=== PATIENT | female | born 1970 | race Caucasian/White ===

== ENCOUNTER 2019-05-02 23:50 | Emergency (ER) | payer BC ==
[2019-05-03] MEDS ORDERED: Sodium Chloride 0.9% 2.5 ML Syringe FLUSH PRN (00:07)
[2019-05-03] MEDS ORDERED: Sodium Chloride 0.9% 1,000 ML IV ONE (00:07)
[2019-05-03] MEDS ORDERED: Sodium Chloride 0.9% 10 ML Syringe FLUSH PRN (00:07)
--- NOTE | 2019-05-03 00:13 | EDM.PDOC ---
ED HPI GENERAL MEDICAL PROBLEM - General Chief Complaint: Chest Pain Stated Complaint: PT HAS CHEST PAINS Time Seen by Provider: 05/02/19 23:56 - History of Present Illness INITIAL COMMENTS - FREE TEXT/NARRATIVE: HISTORY AND PHYSICAL: History of present illness: The patient is a 48-year-old female who follows with Dr. Baker and has had a one-year history of issues of chronic migraines, problems with her breast implants which have been since removed and episodic chest pain midsternal all over the last one year. 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 She says that she is here tonight because she has this episodic midsternal chest pain with an internal shakiness that has happened in the past and it has worsened over the last 8 days. She says that in the past when this has occurred Dr. Baker had given her a beta batsheva which she took for 2 weeks and it improved the symptoms so she stopped taking it although he did not recommend that. She says that when the symptoms started again she restarted the beta batsheva 2-3 days ago. She says that is not been helping. She has been eating and drinking normally and she has not had any abdominal pain vomiting fevers chills coughing or shortness of breath. She describes the pain as a deep pain in the midportion of her sternum that does not radiate and it makes her feel internally shaky and tachycardic. She said that she has been dealing with it at home and has not seen Dr. Baker because she has this appointment at [place] coming up and thought she could wait. This evening she comes to the ED because she woke up from sleep feeling this discomfort and feeling like her heart was racing and her that her blood pressure was elevated 160s over 80s. He said that when she woke up her heart was racing she felt internally shaky and she had tingling all over her extremities. Currently she says she still feels internally like her heart is racing and she feels internally shaky even though she knows that her heart rate is normal on the monitor. She tells me that there is nothing new or different about the character or location of the symptoms but her waking from sleep with the racing heart and the worsening of the symptoms made her scared so she came here. She has a history of a hysterectomy. She has no leg pain swelling or other extremity issues no rashes and no fevers or chills. He says that she has been dealing with these stressful issues over the last one year Review of systems: As per history of present illness and below otherwise all systems reviewed and negative. Past medical history: As per history of present illness and as reviewed below otherwise noncontributory. Surgical history: As per history of present illness and as reviewed below otherwise noncontributory. Social history: No reported history of drug or alcohol abuse. Family history: As per history of present illness and as reviewed below otherwise noncontributory. Physical exam: General: Well-developed well-nourished female who is nontoxic and vital signs were noted by me. She is noted to be somewhat anxious on my evaluation but can be redirected. HEENT: Atraumatic, normocephalic, negative for conjunctival pallor or scleral icterus, mucous membranes moist, throat clear, neck supple, nontender, trachea midline. Lungs: Clear to auscultation, breath sounds equal bilaterally, chest nontender. Heart: S1S2, regular rate and rhythm no overt murmur Abdomen: Soft, nondistended, nontender. NABS Pelvis: Deferred Genitourinary: Deferred. Rectal: Deferred. Extremities: Atraumatic, negative for cords or calf pain. Neurovascular unremarkable. No pedal edema or leg asymmetry Neuro: Awake, alert, oriented. Cranial nerves II through XII unremarkable. Cerebellum unremarkable. Motor and sensory unremarkable throughout. Exam nonfocal. Diagnostics: EKG chest x-ray CBC CMP magnesium level troponin TSH d-dimer Therapeutics: IV fluids, patient was offered Ativan and declines Toradol I discussed with the patient and her significant other bedside that we will be limited in the ED to evaluate these symptoms and as they are not necessarily different from prior episodes we could check basic labs x-ray and EKG and then reevaluate. She is not sure if she has very hydrated but she has tried to drink fluids but is agreeable to have the IV fluids but wants no other medications at this time. Patient says she still feels like this internal shakiness is going on and I've offered her some Toradol which she is agreeable to try. She is aware of her testing results and that she is mildly dehydrated and that the hydration will help. I've again reoffered her some Ativan she would like to see how the Toradol works before moving on. Patient's heart rate is now 68. Earlier the patient asked if she could get another dose of beta batsheva which I told her that I did not feel comfortable giving her an light of her heart rate and have reiterated this on my conversation with her on my reevaluation The patient says that she still has her symptoms but as we are talking together she says that she is feeling a bit more relaxed. She says she does not want the lorazepam and she would like to disco home. She is going to contact Dr. Baker tomorrow and she is aware she can return at any time to the ED Impression: Atypical chest pain/subjective palpitations acute on chronic Definitive disposition and diagnosis as appropriate pending reevaluation and review of above. chest Pain Score (Numeric/FACES): 6 - Related Data Allergies Allergy/AdvReac Type Severity Reaction Status Date / Time promethazine HCl Allergy makes my Verified 05/02/19 23:56 [From Phenergan] skin crawl Home Meds: Home Meds Ascorbate Calcium [Vitamin C] 500 mg PO DAILY 03/08/15 [History] Magnesium 0 mg PO BID 03/08/15 [History] Betablocker 05/03/19 [History] Past Medical History - Past Health History Medical/Surgical History: Denies Medical/Surgical History HEENT History: Reports: None Cardiovascular History: Reports: None Respiratory History: Reports: None Gastrointestinal History: Reports: Other (See Below) Other Gastrointestinal History: increasing epigastric pain Genitourinary History: Reports: None Musculoskeletal History: Reports: None Neurological History: Reports: Other (See Below) Other Neuro History: Sinus Thrombosis Psychiatric History: Reports: Anxiety Endocrine/Metabolic History: Reports: None Hematologic History: Reports: None Immunologic History: Reports: None Oncologic (Cancer) History: Reports: None Dermatologic History: Reports: None - Infectious Disease History Infectious Disease History: Reports: None - Past Surgical History GI Surgical History: Reports: Cholecystectomy Female Surgical History: Reports: Breast Reconstruction, Hysterectomy, Other (See Below) Other Female Surgeries/Procedures: breasts implants taken out 03/10/19 Neurological Surgical History: Reports: None Musculoskeletal Surgical History: Reports: Other (See Below) Other Musculoskeletal Surgeries/Procedures:: pt states "my docor says I probably have benoit, I have an appnt in [place]" for confirmation of benoit Social & Family History - Family History Family Medical History: Noncontributory - Tobacco Use Smoking Status *Q: Never Smoker Second Hand Smoke Exposure: No - Caffeine Use Caffeine Use: Reports: None - Recreational Drug Use Recreational Drug Use: No ED ROS GENERAL - Review of Systems Review Of Systems: ROS reveals no pertinent complaints other than HPI. ED EXAM, GENERAL - Physical Exam Exam: See Below (See dictation) Course - Vital Signs Last Recorded V/S: Last Vital Signs Temp 36.5 C 05/02/19 23:51 Pulse 68 05/03/19 01:08 Resp 16 05/03/19 01:08 BP 123/79 05/03/19 01:08 Pulse Ox 99 05/03/19 01:08 - Orders/Labs/Meds Orders: Active Orders 24 hr Category Date Time Status EKG Documentation Completion [RC] STAT Care 05/02/19 23:51 Active CULTURE URINE [RM] Stat Lab 05/03/19 00:10 Received Sodium Chloride 0.9% [Saline Flush] Med 05/03/19 00:07 Active 10 ml FLUSH ASDIRECTED PRN Sodium Chloride 0.9% [Saline Flush] Med 05/03/19 00:07 Active 2.5 ml FLUSH ASDIRECTED PRN Saline Lock Insert [OM.PC] Stat Oth 05/03/19 00:07 Ordered Medication Orders Sodium Chloride (Saline Flush) 10 ml FLUSH ASDIRECTED PRN PRN Reason: Keep Vein Open Last Admin: 05/03/19 01:09 Dose: 10 ml Sodium Chloride (Saline Flush) 2.5 ml FLUSH ASDIRECTED PRN PRN Reason: Keep Vein Open Last Admin: 05/03/19 01:09 Dose: 2.5 ml Labs: Laboratory Tests 05/02/19 05/02/19 05/02/19 Range/Units 23:45 23:45 23:45 WBC 7.96 (4.0-11.0) K/uL RBC 5.19 (4.30-5.90) M/uL Hgb 14.9 (12.0-16.0) g/dL Hct 42.9 (36.0-46.0) % MCV 82.7 (80.0-98.0) fL MCH 28.7 (27.0-32.0) pg MCHC 34.7 (31.0-37.0) g/dL RDW Std Deviation 37.7 (28.0-62.0) fl RDW Coeff of [place] 13 (11.0-15.0) % Plt Count 225 (150-400) K/uL MPV 9.80 (7.40-12.00) fL Neut % (Auto) 43.5 L (48.0-80.0) % Lymph % (Auto) 42.2 H (16.0-40.0) % [place] % (Auto) 6.4 (0.0-15.0) % Eos % (Auto) 7.0 (0.0-7.0) % Baso % (Auto) 0.9 (0.0-1.5) % Neut # (Auto) 3.5 (1.4-5.7) K/uL Lymph # (Auto) 3.4 H (0.6-2.4) K/uL [place] # (Auto) 0.5 (0.0-0.8) K/uL Eos # (Auto) 0.6 (0.0-0.7) K/uL Baso # (Auto) 0.1 (0.0-0.1) K/uL D-Dimer, Quantitative 0.41 (0.0-0.50) mg/L FEU Sodium 143 (136-145) mmol/L Potassium 4.1 (3.5-5.1) mmol/L Chloride 106 (98-107) mmol/L Carbon Dioxide 23.0 (21.0-32.0) mmol/L BUN 25 H (7.0-18.0) mg/dL Creatinine 0.9 (0.6-1.0) mg/dL Est Cr Clr Drug Dosing 71.56 mL/min Estimated GFR (MDRD) > 60.0 ml/min Glucose 92 (74-106) mg/dL Calcium 9.6 (8.5-10.1) mg/dL Magnesium 2.3 (1.8-2.4) mg/dL Total Bilirubin 0.4 (0.2-1.0) mg/dL AST 15 (15-37) IU/L ALT 16 (14-63) IU/L Alkaline Phosphatase 66 (46-116) U/L Troponin I < 0.050 (0.000-0.056) ng/mL Total Protein 7.4 (6.4-8.2) g/dL Albumin 3.9 (3.4-5.0) g/dL Globulin 3.5 (2.6-4.0) g/dL Albumin/Globulin Ratio 1.1 (0.9-1.6) TSH 3rd Generation 2.95 (0.36-3.74) uIU/mL Urine Color Urine Appearance Urine pH (5.0-8.0) Ur Specific [place] (1.001-1.035) Urine Protein (NEGATIVE) mg/dL Urine Glucose (UA) (NEGATIVE) mg/dL Urine Ketones (NEGATIVE) mg/dL Urine Occult Blood (NEGATIVE) Urine Nitrite (NEGATIVE) Urine Bilirubin (NEGATIVE) Urine Urobilinogen (<2.0) EU/dL Ur Leukocyte Esterase (NEGATIVE) Urine RBC (0-2/HPF) Urine WBC (0-5/HPF) Ur Epithelial Cells (NONE-FEW) Urine Bacteria (NEGATIVE) 05/03/19 Range/Units 00:10 WBC (4.0-11.0) K/uL RBC (4.30-5.90) M/uL Hgb (12.0-16.0) g/dL Hct (36.0-46.0) % MCV (80.0-98.0) fL MCH (27.0-32.0) pg MCHC (31.0-37.0) g/dL RDW Std Deviation (28.0-62.0) fl RDW Coeff of [place] (11.0-15.0) % Plt Count (150-400) K/uL MPV (7.40-12.00) fL Neut % (Auto) (48.0-80.0) % Lymph % (Auto) (16.0-40.0) % [place] % (Auto) (0.0-15.0) % Eos % (Auto) (0.0-7.0) % Baso % (Auto) (0.0-1.5) % Neut # (Auto) (1.4-5.7) K/uL Lymph # (Auto) (0.6-2.4) K/uL [place] # (Auto) (0.0-0.8) K/uL Eos # (Auto) (0.0-0.7) K/uL Baso # (Auto) (0.0-0.1) K/uL D-Dimer, Quantitative (0.0-0.50) mg/L FEU Sodium (136-145) mmol/L Potassium (3.5-5.1) mmol/L Chloride (98-107) mmol/L Carbon Dioxide (21.0-32.0) mmol/L BUN (7.0-18.0) mg/dL Creatinine (0.6-1.0) mg/dL Est Cr Clr Drug Dosing mL/min Estimated GFR (MDRD) ml/min Glucose (74-106) mg/dL Calcium (8.5-10.1) mg/dL Magnesium (1.8-2.4) mg/dL Total Bilirubin (0.2-1.0) mg/dL AST (15-37) IU/L ALT (14-63) IU/L Alkaline Phosphatase (46-116) U/L Troponin I (0.000-0.056) ng/mL Total Protein (6.4-8.2) g/dL Albumin (3.4-5.0) g/dL Globulin (2.6-4.0) g/dL Albumin/Globulin Ratio (0.9-1.6) TSH 3rd Generation (0.36-3.74) uIU/mL Urine Color YELLOW Urine Appearance CLEAR Urine pH 6.0 (5.0-8.0) Ur Specific [place] 1.020 (1.001-1.035) Urine Protein NEGATIVE (NEGATIVE) mg/dL Urine Glucose (UA) NEGATIVE (NEGATIVE) mg/dL Urine Ketones 15 H (NEGATIVE) mg/dL Urine Occult Blood TRACE-INTACT H (NEGATIVE) Urine Nitrite NEGATIVE (NEGATIVE) Urine Bilirubin NEGATIVE (NEGATIVE) Urine Urobilinogen 0.2 (<2.0) EU/dL Ur Leukocyte Esterase TRACE H (NEGATIVE) Urine RBC 1-2 (0-2/HPF) Urine WBC 1-2 (0-5/HPF) Ur Epithelial Cells RARE (NONE-FEW) Urine Bacteria RARE (NEGATIVE) Meds: Medications Generic Name Dose Route Start Last Admin Trade Name Freq PRN Reason Stop Dose Admin Sodium Chloride 10 ml 05/03/19 00:07 05/03/19 01:09 Saline Flush FLUSH 10 ml ASDIRECTED PRN Administration Keep Vein Open Sodium Chloride 2.5 ml 05/03/19 00:07 05/03/19 01:09 Saline Flush FLUSH 2.5 ml ASDIRECTED PRN Administration Keep Vein Open Discontinued Medications Generic Name Dose Route Start Last Admin Trade Name Freq PRN Reason Stop Dose Admin Sodium Chloride 1,000 mls @ 999 mls/hr 05/03/19 00:07 05/03/19 00:16 Normal Saline IV 05/03/19 01:07 999 mls/hr STAT ONE Administration Ketorolac Tromethamine 30 mg 05/03/19 01:06 05/03/19 01:09 Toradol IVPUSH 05/03/19 01:07 30 mg ONETIME ONE Administration Departure - Departure Time of Disposition: 02:12 Disposition: Home, Self-Care 01 Condition: Good Clinical Impression: Shakiness, Atypical chest pain - Discharge Information Referrals: PCP,None [Primary Care Provider] - Forms: ED Department Discharge Additional Instructions: The following information is given to patients seen in the emergency department who are being discharged to home. This information is to outline your options for follow-up care. We provide all patients seen in our emergency department with a follow-up referral. The need for follow-up, as well as the timing and circumstances, are variable depending upon the specifics of your emergency department visit. If you don't have a primary care physician on staff, we will provide you with a referral. We always advise you to contact your personal physician following an emergency department visit to inform them of the circumstance of the visit and for follow-up with them and/or the need for any referrals to a consulting specialist. The emergency department will also refer you to a specialist when appropriate. This referral assures that you have the opportunity for followup care with a specialist. All of these measure are taken in an effort to provide you with optimal care, which includes your followup. Under all circumstances we always encourage you to contact your private physician who remains a resource for coordinating your care. When calling for followup care, please make the office aware that this follow-up is from your recent emergency room visit. If for any reason you are refused follow-up, please contact the [facility] emergency department at and ask to speak to the emergency department charge nurse. [address] [place] [address] Baker in the clinic to discuss with him tonight the events and workup and further care plan until you're seen at the [facility]. Keep all appointments discussed and push hydration. Return to ER as needed and as discussed. - My Orders Last 24 Hours: My Active Orders 05/02/19 23:51 EKG Documentation Completion [RC] STAT 05/03/19 00:07 Sodium Chloride 0.9% [Saline Flush] 10 ml FLUSH ASDIRECTED PRN Sodium Chloride 0.9% [Saline Flush] 2.5 ml FLUSH ASDIRECTED PRN Saline Lock Insert [OM.PC] Stat 05/03/19 00:10 CULTURE URINE [RM] Stat - Assessment/Plan Last 24 Hours: My Active Orders 05/02/19 23:51 EKG Documentation Completion [RC] STAT 05/03/19 00:07 Sodium Chloride 0.9% [Saline Flush] 10 ml FLUSH ASDIRECTED PRN Sodium Chloride 0.9% [Saline Flush] 2.5 ml FLUSH ASDIRECTED PRN Saline Lock Insert [OM.PC] Stat 05/03/19 00:10 CULTURE URINE [RM] Stat
[2019-05-03 00:45] LABS: BLOOD UREA NITROGEN,BUN 25 mg/dL (7.0-18.0); CHLORIDE,CL 106 mmol/L (98-107); GLUCOSE RANDOM 92 mg/dL (74-106); POTASSIUM,K 4.1 mmol/L (3.5-5.1); SODIUM,NA 143 mmol/L (136-145)
--- NOTE | 2019-05-03 00:59 | CR ---
INDICATION: Chest pain TECHNIQUE: Chest radiograph 2 views COMPARISON: None FINDINGS: Mediastinum: The mediastinum is normal in appearance. The heart silhouette is normal in size and morphology. Lung: Both lungs are unremarkable in appearance. No sign of pleural effusion seen. No pneumothorax is identified. IMPRESSION: 1. No acute cardiopulmonary disease is seen. Dictated by: Chance Bridges MD @ 05/03/2019 00:57:17 (Electronically Signed)
[2019-05-03] MEDS ORDERED: Ketorolac 30 MG/ML SDV IVPUSH ONE (01:06)
[2019-05-03 01:10] VITALS: PULSE 68
[2019-05-03 02:40] VITALS: BP 119/89
== END 2019-05-03 02:39 | disposition home or self-care (01) ==
LOC: MW.ED 23:50
DX: R07.89 Other chest pain (principal); R25.9 Unspecified abnormal involuntary movements; R00.2 Palpitations; Z88.8 Allergy status to other drugs, medicaments and biological substances; Z90.49 Acquired absence of other specified parts of digestive tract; Z90.710 Acquired absence of both cervix and uterus
CPT/HCPCS: 36415; 71046; 80053; 81001; 83735; 84443; 84484; 85025; 85379; 87086; 93005; 96361; 96374; 99285; J1885; J7040; 99284

== ENCOUNTER 2020-02-26 09:22 | Emergency (ER) | payer BC ==
[2020-02-26] MEDS ORDERED: Sodium Chloride 0.9% 10 ML Syringe FLUSH PRN (09:44)
[2020-02-26] MEDS ORDERED: Sodium Chloride 0.9% 2.5 ML Syringe FLUSH PRN (09:44)
[2020-02-26] MEDS ORDERED: Sodium Chloride 0.9% 10 ML SDV IV PRN (09:44)
[2020-02-26] MEDS ORDERED: Acetaminophen 500 MG Tab PO ONE (09:45)
[2020-02-26] MEDS ORDERED: Ibuprofen 400 MG Tab PO ONE (09:45)
[2020-02-26] MEDS ORDERED: Lidocaine 5% 700 MG Patch TOP ONE (09:45)
--- NOTE | 2020-02-26 09:51 | EDM.PDOC ---
ED HPI GENERAL MEDICAL PROBLEM - General Chief Complaint: Upper Extremity Injury/Pain Stated Complaint: PAIN SHOULDER RT SIDE Time Seen by Provider: 02/26/20 09:25 Source of Information: Reports: Patient History Limitations: Reports: No Limitations - History of Present Illness INITIAL COMMENTS - FREE TEXT/NARRATIVE: 49-year-old female with a past medical history of Sjogren's syndrome, POTS presenting with chest pain. Patient reports a 3-day history of right-sided chest pain radiating to the right scapula. She states that she did crash her riding lawnmower into a tree 5 days ago, but the pain did not start until about 48 hours later, and started while she was at rest. She describes sharp, right- sided chest pain that is constant and worse with breathing. Rated as 10 out of 10. Does not complain of shortness of breath but does state that it is painful to breathe. No self treatment prior to arrival. She denies any history of venous thromboembolism, leg swelling, hemoptysis, malignancy, recent surgery or immobilization or long travel, or hormonal medication use. No prior history of coronary artery disease. right shoulder Pain Score (Numeric/FACES): 10 - Related Data Allergies Allergy/AdvReac Type Severity Reaction Status Date / Time gabapentin Allergy Hallucinati Verified 02/26/20 09:44 ons promethazine HCl Allergy makes my Verified 05/02/19 23:56 [From Phenergan] skin crawl Home Meds: Home Meds Ascorbate Calcium [Vitamin C] 500 mg PO DAILY 03/08/15 [History] Magnesium 0 mg PO BID 03/08/15 [History] Betablocker 05/03/19 [History] oxyCODONE 5 - 10 mg PO Q6H PRN #12 tab 02/26/20 [Rx] Past Medical History - Past Health History Medical/Surgical History: Denies Medical/Surgical History HEENT History: Reports: None Cardiovascular History: Reports: None Other Cardiovascular History: POTS Respiratory History: Reports: None Gastrointestinal History: Reports: GERD Other Gastrointestinal History: increasing epigastric pain Genitourinary History: Reports: None Musculoskeletal History: Reports: None, Connective Tissue Disease Other Musculoskeletal History: Sjogren's syndrome Neurological History: Reports: Other (See Below) Other Neuro History: Sinus Thrombosis Psychiatric History: Reports: Anxiety Endocrine/Metabolic History: Reports: None Hematologic History: Reports: None Immunologic History: Reports: None Oncologic (Cancer) History: Reports: None Dermatologic History: Reports: None - Infectious Disease History Infectious Disease History: Reports: Chicken Pox - Past Surgical History GI Surgical History: Reports: Cholecystectomy Female Surgical History: Reports: Breast Reconstruction, Hysterectomy, Other (See Below) Other Female Surgeries/Procedures: breasts implants taken out 03/10/19 Neurological Surgical History: Reports: None Musculoskeletal Surgical History: Reports: Other (See Below) Social & Family History - Family History Family Medical History: Noncontributory - Tobacco Use Smoking Status *Q: Never Smoker - Caffeine Use Caffeine Use: Reports: None - Recreational Drug Use Recreational Drug Use: No Review of Systems - Review of Systems Review Of Systems: See Below Constitutional: Denies: Chills, Fever Eyes: Reports: No Symptoms Ears: Reports: No Symptoms Nose: Reports: No Symptoms Mouth/Throat: Reports: No Symptoms Respiratory: Reports: Pleuritic Chest Pain. Denies: Shortness of Breath, Cough Cardiovascular: Reports: Chest Pain. Denies: Edema, Syncope GI/Abdominal: Denies: Abdominal Pain, Nausea, Vomiting Genitourinary: Reports: No Symptoms Musculoskeletal: Reports: No Symptoms Skin: Reports: No Symptoms Neurological: Reports: No Symptoms Psychiatric: Reports: No Symptoms ED EXAM, GENERAL - Physical Exam Exam: See Below Free Text/Narrative:: Vital signs reviewed. Nursing notes reviewed. Constitutional: Awake, alert, non-distressed, appears uncomfortable Head: Normocephalic, atraumatic. Eyes: EOMI, conjunctiva normal, no discharge, no scleral icterus. Ears, Nose, Throat: External ears and nose normal, moist oral mucosa. Cardiovascular: Tachycardic, 2+ radial pulses bilaterally, capillary refill less than 2 seconds. No lower extremity edema. No M/R/G Chest: Marked tenderness to palpation of the right anterior chest Back: Tenderness to the right scapula Pulmonary: normal work of breathing, no accessory muscle use. CTA BL Abdomen/GI: Soft, nontender, nondistended, no guarding or rigidity, no masses. Musculoskeletal: No deformities. Integumentary: Appropriate color for ethnicity, warm, slightly moist, no pallor or jaundice, no rash. No evidence of shingles. Neurologic: Alert, answering questions appropriately, normal speech, no facial droop, moving all extremities well. 5/5 strength to the bilateral upper extremities, strong receiving operator bilaterally, able to make okay sign, thumbs up, and abduct all fingers of the right hands. Psychiatric: Appropriate mood and affect, normal thought process. EKG INTERPRETATION EKG Interpretation Comments: 12-Lead ECG Interpretation Acquired: 9:46 AM Rhythm: Sinus tachycardia Rate: 101 bpm [place]: Normal Intervals: Normal Ectopy: None Ischemic Changes: Q waves in lead III, not appreciated in leads II or aVF. RV Strain: No obvious RV strain pattern. ST Segments/T-Waves: No notable changes Interpretation: Q waves in lead III, nonspecific change. Sinus tachycardia. Abnormal EKG. Course - Vital Signs Text/Narrative:: 49-year-old female with severe right-sided chest pain rating to the back, pleuritic in nature. Patient mildly tachycardic, but [hemodynamically stable, afebrile], well- appearing, looks nontoxic. Differential diagnosis includes but is not limited to: Acute coronary syndrome, pulmonary embolism, pneumothorax, thoracic aortic dissection, rib fracture, pulmonary contusion, musculoskeletal chest pain, early shingles, fracture, dislocation, etc. Patient was given acetaminophen, ibuprofen, and lidocaine patch. I did recommend a muscle relaxer but the patient refused. Ordered labs, EKG, x-rays. 10:57 AM: Patient continues of ongoing pain but is refusing any additional analgesic medications or muscle relaxers as I recommended. We are awaiting x- ray reads from radiology. CBC is reassuring. D-dimer is negative. Troponin is negative. Metabolic panel shows a glucose of 214. Patient does not have a known history of diabetes. 11:09 AM: Chest x-ray shows no acute findings. Right shoulder x-ray series also unremarkable. There is some concern for newly diagnosed diabetes. I added on a hemoglobin A1c, we will obtain a urinalysis to look for glycosuria and protein, and we will proceed with CT imaging of the chest given severe right -sided chest pain radiating to the back. 11:38 AM: Hemoglobin A1c is 5.6. Urinalysis shows no glycosuria or proteinuria. Awaiting CT read. 12:11 PM: CT chest shows no acute findings. Patient does not meet diagnostic criteria for diabetes mellitus by A1c. Etiology of patient's pain is not entirely clear, could be due to severe muscle spasm or potentially due to early shingles though no rashes apparent. No objective evidence of myocardial ischemia by biomarker testing or EKG, I would expect the troponin to be positive with 3 days of continuous chest pain. Imaging studies showed no evidence of pneumothorax, rib fractures, pulmonary injury. There is no evidence of a zoster-like rash on examination. I did consider pulmonary embolism, the patient is moderate risk by Wells criteria but has a negative d-dimer. Her heart rate is fluctuating between 90-102, pulse oximetry is 94 to 96% by room air. Her EKG shows no evidence of right ventricular strain, her troponin is negative, and she is not hypotensive. She denies dyspnea. Additionally, there is no extremity swelling or edema or any historical risk factors for venous thromboembolism, so I think a pulmonary embolism is much less likely. She is markedly tender over the right anterior chest and the right scapula, which is not consistent with a PE. Given negative work-up and well appearance, patient is stable to discharge home with outpatient primary care follow-up. I did recommend [id number] extra strength Tylenol, ibuprofen, heating pads. Will prescribe a short course of oxycodone for severe pain as needed. [place] PDM queried. No red flag entries noted. I encouraged close primary care follow-up with her physician in the next week. I did world travel counselor her that if she were to develop a rash, she should re-present to the emergency department or follow-up with her primary medical doctor as she would need to start antiviral treatment for shingles within 72 hours. I also explained her elevated blood glucose level, while not diagnostic of diabetes mellitus, should be followed up on by her primary care physician in the near future. Plan: Patient is stable to discharge home with outpatient primary care follow- up. Strict emergency department return precautions were provided, patient indicated understanding. All questions were answered prior to departure. Discharged in good condition. Wells' Criteria for Pulmonary Embolism RESULT SUMMARY: 4.5 points Moderate risk group: 16.2% chance of PE in an ED population. Last Recorded V/S: Last Vital Signs Temp 36.1 C 02/26/20 09:29 Pulse 82 02/26/20 12:39 Resp 16 02/26/20 12:39 BP 121/73 02/26/20 12:39 Pulse Ox 96 02/26/20 12:39 - Orders/Labs/Meds Orders: Active Orders 24 hr Category Date Time Status Cardiac Monitoring [RC] . DIRECTED Care 02/26/20 09:44 Active EKG 12 Lead [EKG Documentation Completion] [RC] STAT Care 02/26/20 09:41 Active Pulse Oximetry [RC] ASDIRECTED Care 02/26/20 09:44 Active Sodium Chloride 0.9% [Normal Saline] Med 02/26/20 09:44 Active 10 ml IV ASDIRECTED PRN Sodium Chloride 0.9% [Saline Flush] Med 02/26/20 09:44 Active 10 ml FLUSH ASDIRECTED PRN Sodium Chloride 0.9% [Saline Flush] Med 02/26/20 09:44 Active 2.5 ml FLUSH ASDIRECTED PRN Peripheral IV Insertion Adult [OM.PC] Stat Oth 02/26/20 09:44 Ordered Medication Orders Sodium Chloride (Saline Flush) 10 ml FLUSH ASDIRECTED PRN PRN Reason: Keep Vein Open Last Admin: 02/26/20 09:57 Dose: 10 ml Sodium Chloride (Saline Flush) 2.5 ml FLUSH ASDIRECTED PRN PRN Reason: Keep Vein Open Last Admin: 02/26/20 09:57 Dose: 2.5 ml Sodium Chloride (Normal Saline) 10 ml IV ASDIRECTED PRN PRN Reason: IV Use Last Admin: 02/26/20 09:57 Dose: 10 ml Labs: Laboratory Tests 02/26/20 02/26/20 02/26/20 Range/Units 10:00 10:00 10:00 WBC 8.56 (4.0-11.0) K/uL RBC 5.10 (4.30-5.90) M/uL Hgb 14.7 (12.0-16.0) g/dL Hct 43.6 (36.0-46.0) % MCV 85.5 (80.0-98.0) fL MCH 28.8 (27.0-32.0) pg MCHC 33.7 (31.0-37.0) g/dL RDW Std Deviation 40.1 (28.0-62.0) fl RDW Coeff of [place] 13 (11.0-15.0) % Plt Count 239 (150-400) K/uL MPV 9.10 (7.40-12.00) fL Neut % (Auto) 69.4 (48.0-80.0) % Lymph % (Auto) 22.4 (16.0-40.0) % [place] % (Auto) 5.7 (0.0-15.0) % Eos % (Auto) 2.1 (0.0-7.0) % Baso % (Auto) 0.4 (0.0-1.5) % Neut # (Auto) 5.9 H (1.4-5.7) K/uL Lymph # (Auto) 1.9 (0.6-2.4) K/uL [place] # (Auto) 0.5 (0.0-0.8) K/uL Eos # (Auto) 0.2 (0.0-0.7) K/uL Baso # (Auto) 0.0 (0.0-0.1) K/uL Nucleated RBC % 0.0 /100WBC Nucleated RBCs # 0 K/uL D-Dimer, Quantitative 0.46 (0.0-0.50) mg/L FEU Sodium 138 (136-145) mmol/L Potassium 4.2 (3.5-5.1) mmol/L Chloride 105 (98-107) mmol/L Carbon Dioxide 21.1 (21.0-32.0) mmol/L BUN 16 (7.0-18.0) mg/dL Creatinine 1.0 (0.6-1.0) mg/dL Est Cr Clr Drug Dosing 61.23 mL/min Estimated GFR (MDRD) 58.9 ml/min Glucose 214 H (74-106) mg/dL Hemoglobin A1c (4.5-6.2) % Calcium 9.3 (8.5-10.1) mg/dL Troponin I < 0.050 (0.000-0.056) ng/mL Urine Color Urine Appearance Urine pH (5.0-8.0) Ur Specific [place] (1.001-1.035) Urine Protein (NEGATIVE) mg/dL Urine Glucose (UA) (NEGATIVE) mg/dL Urine Ketones (NEGATIVE) mg/dL Urine Occult Blood (NEGATIVE) Urine Nitrite (NEGATIVE) Urine Bilirubin (NEGATIVE) Urine Urobilinogen (<2.0) EU/dL Ur Leukocyte Esterase (NEGATIVE) 02/26/20 02/26/20 Range/Units 10:00 11:09 WBC (4.0-11.0) K/uL RBC (4.30-5.90) M/uL Hgb (12.0-16.0) g/dL Hct (36.0-46.0) % MCV (80.0-98.0) fL MCH (27.0-32.0) pg MCHC (31.0-37.0) g/dL RDW Std Deviation (28.0-62.0) fl RDW Coeff of [place] (11.0-15.0) % Plt Count (150-400) K/uL MPV (7.40-12.00) fL Neut % (Auto) (48.0-80.0) % Lymph % (Auto) (16.0-40.0) % [place] % (Auto) (0.0-15.0) % Eos % (Auto) (0.0-7.0) % Baso % (Auto) (0.0-1.5) % Neut # (Auto) (1.4-5.7) K/uL Lymph # (Auto) (0.6-2.4) K/uL [place] # (Auto) (0.0-0.8) K/uL Eos # (Auto) (0.0-0.7) K/uL Baso # (Auto) (0.0-0.1) K/uL Nucleated RBC % /100WBC Nucleated RBCs # K/uL D-Dimer, Quantitative (0.0-0.50) mg/L FEU Sodium (136-145) mmol/L Potassium (3.5-5.1) mmol/L Chloride (98-107) mmol/L Carbon Dioxide (21.0-32.0) mmol/L BUN (7.0-18.0) mg/dL Creatinine (0.6-1.0) mg/dL Est Cr Clr Drug Dosing mL/min Estimated GFR (MDRD) ml/min Glucose (74-106) mg/dL Hemoglobin A1c 5.6 (4.5-6.2) % Calcium (8.5-10.1) mg/dL Troponin I (0.000-0.056) ng/mL Urine Color YELLOW Urine Appearance CLEAR Urine pH 5.5 (5.0-8.0) Ur Specific [place] >= 1.030 (1.001-1.035) Urine Protein NEGATIVE (NEGATIVE) mg/dL Urine Glucose (UA) NEGATIVE (NEGATIVE) mg/dL Urine Ketones NEGATIVE (NEGATIVE) mg/dL Urine Occult Blood NEGATIVE (NEGATIVE) Urine Nitrite NEGATIVE (NEGATIVE) Urine Bilirubin NEGATIVE (NEGATIVE) Urine Urobilinogen 0.2 (<2.0) EU/dL Ur Leukocyte Esterase NEGATIVE (NEGATIVE) Meds: Medications Generic Name Dose Route Start Last Admin Trade Name Freq PRN Reason Stop Dose Admin Sodium Chloride 10 ml 02/26/20 09:44 02/26/20 09:57 Saline Flush FLUSH 10 ml ASDIRECTED PRN Administration Keep Vein Open Sodium Chloride 2.5 ml 02/26/20 09:44 02/26/20 09:57 Saline Flush FLUSH 2.5 ml ASDIRECTED PRN Administration Keep Vein Open Sodium Chloride 10 ml 02/26/20 09:44 02/26/20 09:57 Normal Saline IV 10 ml ASDIRECTED PRN Administration IV Use Discontinued Medications Generic Name Dose Route Start Last Admin Trade Name Freq PRN Reason Stop Dose Admin Acetaminophen 1,000 mg 02/26/20 09:45 02/26/20 09:56 Tylenol Extra Strength PO 02/26/20 09:46 1,000 mg ONETIME ONE Administration Ibuprofen 400 mg 02/26/20 09:45 02/26/20 09:56 Motrin PO 02/26/20 09:46 400 mg ONETIME ONE Administration Iopamidol 75 ml 02/26/20 12:00 02/26/20 12:01 Isovue Multipack-370 (76%) IVPUSH 02/26/20 12:01 75 ml ONETIME ONE Administration Lidocaine 700 mg 02/26/20 09:45 02/26/20 09:56 Lidoderm 5% TOP 02/26/20 09:46 700 mg ONETIME ONE Administration Departure - Departure Time of Disposition: 12:26 Disposition: Home, Self-Care 01 Condition: Good Clinical Impression: Right-sided chest pain, Hyperglycemia - Discharge Information *PRESCRIPTION DRUG MONITORING PROGRAM REVIEWED*: Yes *COPY OF PRESCRIPTION DRUG MONITORING REPORT IN PATIENT AIDA: Not Applicable Prescriptions: oxyCODONE 5 - 10 mg PO Q6H PRN #12 tab PRN Reason: Pain (Severe 7-10) Instructions: Chest Wall Pain, [id number], Nonspecific Chest Pain, Adult, [id number] Referrals: Darwin Baker MD [Primary Care Provider] - Forms: ED Department Discharge Additional Instructions: Thank you for choosing the [facility] emergency department in [place] for your medical needs today. It was a pleasure caring for you. You were seen in the emergency department for chest pain and back pain. Your x- rays, CT scan, EKG, and blood work all look reassuring. You did have an elevated blood sugar by your blood work, but you do not meet diagnostic criteria for diabetes at this point. We prescribed a short course of oxycodone for pain. I also recommend over-the- counter extra strength acetaminophen and ibuprofen along with a heating pad. I also recommend [id number] lidocaine patches. I suspect that you either have a severe muscle spasm or possibly early shingles though you do not have the shingles rash yet. If you develop a rash on your back or your chest, you should come back to the emergency department or follow-up with your primary doctor so we can start you on antiviral shingles medication within 72 hours of the rash appearing. Obviously, if you feel worse than you should immediately return to the emergency department, particularly if your pain intensifies, if you have trouble breathing, or you have any other new or concerning symptoms. The following information is given to patients seen in the emergency department who are being discharged. This information is to outline your options for follow -up care. We provide all patients seen in our emergency department with a follow -up referral. The need for follow-up, as well as the timing and circumstances, are variable depending upon the specifics of your emergency department visit. If you don't have a primary care physician on staff, we will provide you with a referral. We always advise you to contact your personal physician following an emergency department visit to inform them of the circumstance of the visit and for follow-up with them and/or the need for any referrals to a consulting specialist. The emergency department will also refer you to a specialist when appropriate. This referral assures that you have the opportunity for follow-up care with a specialist. All of these measure are taken in an effort to provide you with optimal care, which includes your follow-up. Under all circumstances we always encourage you to contact your private physician who remains a resource for coordinating your care. When calling for follow-up care, please make the office aware that this follow-up is from your recent emergency room visit. If for any reason you are refused follow-up, please contact the [facility] Emergency Department at and asked to speak to the emergency department charge nurse. If you do not have a primary care physician that is caring for you, you can contact these clinics below to set up an appointment to establish care: [facility] - Primary Care [address] [place] [id number] [facility] [address] [place] [id number] Sepsis Event Note - Evaluation Sepsis Screening Result: No Definite Risk - Focused Exam Vital Signs: Vital Signs Temp Pulse Resp BP Pulse Ox 02/26/20 12:39 82 16 121/73 96 02/26/20 11:40 92 18 121/73 96 02/26/20 10:53 90 19 141/90 H 95 02/26/20 09:29 36.1 C 110 H 18 141/90 H 95 Date Exam was Performed: 02/26/20 Time Exam was Performed: 12:41 - My Orders Last 24 Hours: My Active Orders 02/26/20 09:41 EKG 12 Lead [EKG Documentation Completion] [RC] STAT 02/26/20 09:44 Cardiac Monitoring [RC] . DIRECTED Pulse Oximetry [RC] ASDIRECTED Sodium Chloride 0.9% [Normal Saline] 10 ml IV ASDIRECTED PRN Sodium Chloride 0.9% [Saline Flush] 10 ml FLUSH ASDIRECTED PRN Sodium Chloride 0.9% [Saline Flush] 2.5 ml FLUSH ASDIRECTED PRN Peripheral IV Insertion Adult [OM.PC] Stat - Assessment/Plan Last 24 Hours: My Active Orders 02/26/20 09:41 EKG 12 Lead [EKG Documentation Completion] [RC] STAT 02/26/20 09:44 Cardiac Monitoring [RC] . DIRECTED Pulse Oximetry [RC] ASDIRECTED Sodium Chloride 0.9% [Normal Saline] 10 ml IV ASDIRECTED PRN Sodium Chloride 0.9% [Saline Flush] 10 ml FLUSH ASDIRECTED PRN Sodium Chloride 0.9% [Saline Flush] 2.5 ml FLUSH ASDIRECTED PRN Peripheral IV Insertion Adult [OM.PC] Stat
[2020-02-26 10:37] LABS: BLOOD UREA NITROGEN,BUN 16 mg/dL (7.0-18.0); CARBON DIOXIDE,CO2 21.1 mmol/L (21.0-32.0); CHLORIDE,CL 105 mmol/L (98-107); GLUCOSE RANDOM 214 mg/dL (74-106); POTASSIUM,K 4.2 mmol/L (3.5-5.1); SODIUM,NA 138 mmol/L (136-145)
--- NOTE | 2020-02-26 10:54 | CR ---
Chest: 2 views of the chest were obtained. Comparison: Prior chest x-ray of 05/03/19. Heart size is normal. Tortuous thoracic aorta is seen. Lungs are clear with no acute parenchymal change. Minimal scoliosis is noted within the spine. Surgical clips are noted from prior cholecystectomy. Impression: 1. Findings as noted above. 2. Nothing acute is appreciated on 2 view chest x-ray. Diagnostic code #2 This report was dictated in MDT
--- NOTE | 2020-02-26 10:57 | CR ---
Right shoulder: 3 views of the right shoulder were obtained. Comparison: No previous shoulder study. Acromioclavicular and glenohumeral joints appear within normal limits. No fracture, dislocation or other bony abnormality is seen. Impression: 1. No abnormality is appreciated on 3 view right shoulder exam. Diagnostic code #1 This report was dictated in MDT
[2020-02-26 11:35] LABS: HEMOGLOBIN A1C 5.6 % (4.5-6.2)
[2020-02-26 11:40] VITALS: BP 121/73
[2020-02-26] MEDS ORDERED: Iopamidol 755 MG/ML 500 ML Multipack Bottle IVPUSH ONE (12:00)
--- NOTE | 2020-02-26 12:09 | CT ---
CT chest Technique multiple axial sections were obtained from above the lung apices inferiorly through the lung bases. Intravenous contrast was utilized. Comparison: No prior chest CT study, prior chest x-ray of 02/26/20. Findings: Thoracic aorta shows no aneurysm. Mediastinum and hilar region show no adenopathy. No axillary adenopathy is seen. No pericardial thickening is seen. Visualized upper abdominal structures shows nothing acute. Lungs show no acute parenchymal process. No pleural effusions or pneumothorax is appreciated. Bone window settings were reviewed. No acute osseous finding is appreciated. Impression: 1. Findings as noted above. 2. Nothing acute is appreciated on CT study of the chest. Diagnostic code #2 This report was dictated in MDT
[2020-02-26 12:40] VITALS: PULSE 82
== END 2020-02-26 12:42 | disposition home or self-care (01) ==
LOC: MW.ED 09:22
DX: R07.81 Pleurodynia (principal); R73.9 Hyperglycemia, unspecified; Z88.8 Allergy status to other drugs, medicaments and biological substances
CPT/HCPCS: 36415; 71046; 71260; 73030; 80048; 81003; 83036; 84484; 85025; 85379; 93005; 99285; A9270; J7050; Q9967; 99283

== ENCOUNTER 2021-11-22 08:41 | Emergency (ER) | payer BC ==
[2021-11-22] MEDS ORDERED: Aspirin 81 MG Tab.Chew PO ONE (09:23)
[2021-11-22 09:42] LABS: BLOOD UREA NITROGEN,BUN 9 mg/dL (7.0-18.0); CARBON DIOXIDE,CO2 23.4 mmol/L (21.0-32.0); CHLORIDE,CL 102 mmol/L (98-107); GLUCOSE RANDOM 125 mg/dL (74-106); POTASSIUM,K 4.1 mmol/L (3.5-5.1); SODIUM,NA 140 mmol/L (136-145)
[2021-11-22] MEDS ORDERED: Ketorolac 30 MG/ML SDV IVPUSH ONE (10:08)
[2021-11-22] MEDS ORDERED: Iopamidol 755 MG/ML 500 ML Multipack Bottle IVPUSH STA (11:55)
[2021-11-22 13:29] VITALS: BP 133/85; PULSE 84
== END 2021-11-22 13:29 | disposition home or self-care (01) ==
LOC: MW.ED 08:41
DX: R07.9 Chest pain, unspecified (principal); R05.9 Cough, unspecified; Z88.8 Allergy status to other drugs, medicaments and biological substances
CPT/HCPCS: 36415; 71045; 71275; 80053; 82550; 84484; 85025; 85379; 93005; 96374; 99285; A9270; J1885; Q9967

== ENCOUNTER 2021-11-24 04:10 | Emergency (ER) | payer BC ==
[2021-11-24] MEDS ORDERED: fentaNYL 50 MCG/ML SDV IVPUSH ONE (04:21)
[2021-11-24] MEDS ORDERED: Lactated Ringers 1,000 ML IV STA (04:21)
[2021-11-24] MEDS ORDERED: Iopamidol 755 MG/ML 500 ML Multipack Bottle IVPUSH ONE (04:47)
[2021-11-24 04:48] LABS: BLOOD UREA NITROGEN,BUN 15 mg/dL (7.0-18.0); CARBON DIOXIDE,CO2 22.5 mmol/L (21.0-32.0); CHLORIDE,CL 103 mmol/L (98-107); GLUCOSE RANDOM 116 mg/dL (74-106); POTASSIUM,K 4.2 mmol/L (3.5-5.1); SODIUM,NA 139 mmol/L (136-145)
[2021-11-24] MEDS ORDERED: traMADol 50 MG Tab PO ONE (07:43)
[2021-11-24] MEDS ORDERED: Ketorolac 30 MG/ML SDV IVPUSH ONE (07:43)
[2021-11-24 08:19] VITALS: BP 134/89; PULSE 83
== END 2021-11-24 08:19 | disposition home or self-care (01) ==
LOC: MW.ED 04:10
DX: R07.89 Other chest pain (principal); Z88.8 Allergy status to other drugs, medicaments and biological substances
CPT/HCPCS: 36415; 71275; 74174; 80048; 83735; 84484; 84703; 85025; 93005; 96374; 96375; 99285; A9270; J1885; J3010; J7120; Q9967

== ENCOUNTER 2023-08-30 14:41 | Emergency (ER) | payer SELFPAY ==
[2023-08-30 15:09] LABS: BASOPHILS ABSOLUTE AUTO 0.08 K/uL (0.00-0.20); EOSINOPHILS PERCENT AUTO 2.5 % (0.0-6.0); HEMATOCRIT 43.7 % (37.0-47.0); HEMOGLOBIN 15.3 g/dL (12.0-16.0); IMMATURE GRAN ABSOLUTE AUTO 0.02 K/uL (0.00-0.05); IMMATURE GRAN PERCENT AUTO 0.3 % (0.0-0.4); LYMPHOCYTES ABSOLUTE AUTO 3.39 K/uL (1.00-4.80); LYMPHOCYTES PERCENT AUTO 42.4 % (24.0-44.0); MEAN CORPUSCULAR HEMOGLOBIN 28.8 pg (28.0-32.0); MEAN CORPUSCULAR VOLUME 82.1 fL (83.0-99.0); MEAN PLATELET VOLUME 8.9 fL (9.4-12.3); MONOCYTES ABSOLUTE AUTO 0.63 K/uL (0.00-0.80); MONOCYTES PERCENT AUTO 7.9 % (0.0-8.0); NEUTROPHILS ABSOLUTE AUTO 3.67 K/uL (1.80-7.70); NEUTROPHILS PERCENT AUTO 45.9 % (41.0-71.0); PLATELET COUNT,PLT 274 K/uL (150-400); RED BLOOD CELL COUNT 5.32 M/uL (4.10-5.30); WHITE BLOOD CELL COUNT,WBC 7.99 K/uL (3.9-11.3)
[2023-08-30 15:15] LABS: INR 0.98 (0.86-1.11); PTT,PARTIAL THROMBOPLSTIN TIME 27.6 SEC (23.9-30.7)
[2023-08-30] MEDS ORDERED: Iopamidol 755 MG/ML 500 ML Multipack Bottle IVPUSH STA (15:16)
[2023-08-30 15:23] LABS: A/G RATIO 1.2 (0.9-1.6); ALANINE AMINOTRANSFERASE,ALT 28 IU/L (14-63); ALBUMIN 4.2 g/dL (3.4-5.0); ALKALINE PHOSPHATASE 79 U/L (46-116); ASPARTATE AMNIOTRANSFERASE,AST 13 IU/L (15-37); BILIRUBIN TOTAL 0.7 mg/dL (0.2-1.0); BLOOD UREA NITROGEN,BUN 11 mg/dL (7.0-18.0); CALCIUM 9.6 mg/dL (8.5-10.1); CARBON DIOXIDE,CO2 25.7 mmol/L (21.0-32.0); CHLORIDE,CL 102 mmol/L (98-107); EST CRCL DRUG DOSING (CG) 59.22 mL/min; ETHANOL BLOOD MEDICAL <3 mg/dL; GLUCOSE RANDOM 89 mg/dL (74-106); MAGNESIUM 2.1 mg/dL (1.8-2.4); POTASSIUM,K 3.9 mmol/L (3.5-5.1); PROTEIN TOTAL,TP 7.6 g/dL (6.4-8.2); SODIUM,NA 138 mmol/L (136-145)
[2023-08-30 15:25] LABS: ESTIMATED GFR 68 mL/min (>60)
[2023-08-30 17:36] LABS: APPEARANCE,URINE CLEAR; BILIRUBIN,URINE NEGATIVE (NEGATIVE); COLOR,URINE YELLOW; GLUCOSE,URINE NEGATIVE (NEGATIVE); KETONES,URINE TRACE mg/dL (NEGATIVE); LEUKOCYTE ESTERASE,URINE NEGATIVE (NEGATIVE); NITRITE,URINE POSITIVE (NEGATIVE); OCCULT BLOOD,URINE NEGATIVE (NEGATIVE); PH,URINE 5.5 (5.0-8.0); PROTEIN,URINE NEGATIVE (NEGATIVE); UROBILINOGEN,URINE 0.2 EU/dL (<2.0)
[2023-08-30 17:46] LABS: BACTERIA,URINE FEW (NEGATIVE); EPITHELIAL CELLS,URINE RARE (NONE-FEW); RBC,URINE 0-1 (0-2/HPF); WBC,URINE 0-2 (0-5/HPF)
[2023-08-30 18:06] VITALS: BP 167/103; PULSE 94
== END 2023-08-30 18:06 | disposition home or self-care (01) ==
LOC: MW.ED 14:41
DX: Q07.9 Congenital malformation of nervous system, unspecified (principal); Z79.899 Other long term (current) drug therapy; Z88.8 Allergy status to other drugs, medicaments and biological substances; Z90.49 Acquired absence of other specified parts of digestive tract; Z90.710 Acquired absence of both cervix and uterus
CPT/HCPCS: 36415; 70450; 70496; 70498; 70551; 80053; 80307; 81001; 82947; 83735; 84703; 85025; 85610; 85730; 99284; Q9967

== ENCOUNTER 2024-01-24 11:54 | Emergency (ER) | payer BC ==
[2024-01-24 12:09] LABS: BASOPHILS ABSOLUTE AUTO 0.07 K/uL (0.00-0.20); EOSINOPHILS ABSOLUTE AUTO 0.25 K/uL (0.00-0.45); EOSINOPHILS PERCENT AUTO 3.6 % (0.0-6.0); HEMATOCRIT 43.5 % (37.0-47.0); HEMOGLOBIN 15.3 g/dL (12.0-16.0); IMMATURE GRAN ABSOLUTE AUTO 0.02 K/uL (0.00-0.05); IMMATURE GRAN PERCENT AUTO 0.3 % (0.0-0.4); LYMPHOCYTES ABSOLUTE AUTO 2.85 K/uL (1.00-4.80); LYMPHOCYTES PERCENT AUTO 41.1 % (24.0-44.0); MEAN CORPUSCULAR HEMOGLOBIN 29.7 pg (28.0-32.0); MEAN CORPUSCULAR HGB CONC 35.2 g/dL (32.0-36.0); MEAN CORPUSCULAR VOLUME 84.5 fL (83.0-99.0); MONOCYTES PERCENT AUTO 7.2 % (0.0-8.0); NEUTROPHILS ABSOLUTE AUTO 3.24 K/uL (1.80-7.70); NEUTROPHILS PERCENT AUTO 46.8 % (41.0-71.0); PLATELET COUNT,PLT 260 K/uL (150-400); RED BLOOD CELL COUNT 5.15 M/uL (4.10-5.30); WHITE BLOOD CELL COUNT,WBC 6.93 K/uL (3.9-11.3)
[2024-01-24 12:16] LABS: INR 0.94 (0.86-1.11); PTT,PARTIAL THROMBOPLSTIN TIME 26.9 SEC (23.9-30.7)
[2024-01-24] MEDS: Iopamidol 755 MG/ML 500 ML Multipack Bottle IVPUSH STA (12:18)
[2024-01-24 12:22] LABS: A/G RATIO 1.1 (0.9-1.6); ALANINE AMINOTRANSFERASE,ALT 32 IU/L (14-63); ALBUMIN 3.8 g/dL (3.4-5.0); ALKALINE PHOSPHATASE 72 U/L (46-116); ASPARTATE AMNIOTRANSFERASE,AST 18 IU/L (15-37); BILIRUBIN TOTAL 0.5 mg/dL (0.2-1.0); BLOOD UREA NITROGEN,BUN 13 mg/dL (7.0-18.0); CALCIUM 9.1 mg/dL (8.5-10.1); CARBON DIOXIDE,CO2 23.6 mmol/L (21.0-32.0); CHLORIDE,CL 105 mmol/L (98-107); CREATININE 1.1 mg/dL (0.6-1.0); GLUCOSE RANDOM 94 mg/dL (74-106); POTASSIUM,K 4.2 mmol/L (3.5-5.1); PROTEIN TOTAL,TP 7.3 g/dL (6.4-8.2); SODIUM,NA 140 mmol/L (136-145)
[2024-01-24 12:23] LABS: ESTIMATED GFR 60 mL/min (>60)
[2024-01-24] MEDS: fentaNYL 50 MCG/ML SDV IVPUSH ONE (12:25)
[2024-01-24] MEDS: Sodium Chloride 0.9% 10 ML Syringe FLUSH PRN (13:58)
[2024-01-24] MEDS: Sodium Chloride 0.9% 2.5 ML Syringe FLUSH PRN (13:58)
[2024-01-24 14:26] VITALS: BP 133/79; PULSE 83
== END 2024-01-24 14:25 | disposition home or self-care (01) ==
LOC: MW.ED 11:54
DX: S09.90XA Unspecified injury of head, initial encounter (principal); S80.11XA Contusion of right lower leg, initial encounter; S50.11XA Contusion of right forearm, initial encounter; S50.01XA Contusion of right elbow, initial encounter; Z88.8 Allergy status to other drugs, medicaments and biological substances; Z79.899 Other long term (current) drug therapy; Z90.49 Acquired absence of other specified parts of digestive tract; Z90.710 Acquired absence of both cervix and uterus; V43.53XA Car driver injured in collision with pick-up truck in traffic accident, initial encounter; Y93.89 Activity, other specified
CPT/HCPCS: 36415; 70450; 71260; 72125; 73030; 73090; 73590; 74177; 80053; 85025; 85610; 85730; 99285; J3490; Q9967

== ENCOUNTER 2024-07-12 10:25 | Emergency (ER) | payer OTHER, BC ==
[2024-07-12] MEDS: Amoxicillin/Clavulanate K 875-125 MG Tab PO ONE (11:14)
[2024-07-12 11:22] VITALS: BP 133/85; PULSE 75
== END 2024-07-12 11:23 | disposition home or self-care (01) ==
LOC: MW.ED 10:25
DX: H66.002 Acute suppurative otitis media without spontaneous rupture of ear drum, left ear (principal); H60.502 Unspecified acute noninfective otitis externa, left ear; Z86.16 Personal history of COVID-19; Z90.49 Acquired absence of other specified parts of digestive tract; Z90.710 Acquired absence of both cervix and uterus; Z88.6 Allergy status to analgesic agent; Z88.8 Allergy status to other drugs, medicaments and biological substances; Z79.2 Long term (current) use of antibiotics
CPT/HCPCS: 99282; A9270

== ENCOUNTER 2025-06-21 18:12 | Emergency (ER) | payer BC ==
[2025-06-21] MEDS ORDERED: Sodium Chloride 0.9% 10 ML Syringe FLUSH PRN (18:14)
[2025-06-21] MEDS ORDERED: Sodium Chloride 0.9% 2.5 ML Syringe FLUSH PRN (18:14)
[2025-06-21 18:57] LABS: BASOPHILS ABSOLUTE AUTO 0.04 K/uL (0.00-0.20); BASOPHILS PERCENT AUTO 0.6 % (0.0-1.0); EOSINOPHILS ABSOLUTE AUTO 0.11 K/uL (0.00-0.45); EOSINOPHILS PERCENT AUTO 1.7 % (0.0-6.0); IMMATURE GRAN ABSOLUTE AUTO 0.01 K/uL (0.00-0.05); IMMATURE GRAN PERCENT AUTO 0.2 % (0.0-0.4); LYMPHOCYTES ABSOLUTE AUTO 2.56 K/uL (1.00-4.80); LYMPHOCYTES PERCENT AUTO 40.1 % (24.0-44.0); MEAN PLATELET VOLUME 8.9 fL (9.4-12.3); MONOCYTES ABSOLUTE AUTO 0.47 K/uL (0.00-0.80); MONOCYTES PERCENT AUTO 7.4 % (0.0-8.0); NEUTROPHILS ABSOLUTE AUTO 3.20 K/uL (1.80-7.70); NEUTROPHILS PERCENT AUTO 50.0 % (41.0-71.0); NRBC ABSOLUTE 0.00 K/uL (0.00-0.02); NRBC PERCENT 0.0 /100WBC (0.0-0.2); PLATELET COUNT,PLT 239 K/uL (150-400); RED BLOOD CELL COUNT 4.55 M/uL (4.10-5.30); WHITE BLOOD CELL COUNT,WBC 6.39 K/uL (3.9-11.3)
[2025-06-21] MEDS: Ondansetron 4 MG/2 ML SDV IVPUSH ONE (19:21)
[2025-06-21] MEDS: Ketorolac 30 MG/ML SDV IVPUSH ONE (19:23)
[2025-06-21] MEDS: cefTRIAXone 2 GM in Water For Injection, Sterile 20 ML IVPUSH ONE (19:29)
[2025-06-21 20:07] LABS: A/G RATIO 1.4 (0.9-1.6); ALANINE AMINOTRANSFERASE,ALT 23.0 IU/L (14-63); ASPARTATE AMNIOTRANSFERASE,AST 20.0 IU/L (15-37); BILIRUBIN TOTAL 1.1 mg/dL (0.2-1.0); BLOOD UREA NITROGEN,BUN 16.0 mg/dL (7.0-18.0); CARBON DIOXIDE,CO2 24.8 mmol/L (21.0-32.0); CHLORIDE,CL 107.0 mmol/L (98-107); CREATININE 1.2 mg/dL (0.6-1.0); EST CRCL DRUG DOSING (CG) 50.17 mL/min; GLUCOSE RANDOM 95.0 mg/dL (74-106); POTASSIUM,K 4.1 mmol/L (3.5-5.1); PROTEIN TOTAL,TP 6.7 g/dL (6.4-8.2); SODIUM,NA 144.0 mmol/L (136-145)
[2025-06-21 20:09] LABS: ESTIMATED GFR 54.0 mL/min (>60)
[2025-06-21 20:25] VITALS: BP 124/80; PULSE 80
== END 2025-06-21 20:36 | disposition home or self-care (01) ==
LOC: MW.ED 18:12
DX: N21.0 Calculus in bladder (principal); N39.0 Urinary tract infection, site not specified; N20.2 Calculus of kidney with calculus of ureter; Z88.8 Allergy status to other drugs, medicaments and biological substances; Z79.899 Other long term (current) drug therapy; Z86.16 Personal history of COVID-19; Z90.710 Acquired absence of both cervix and uterus
CPT/HCPCS: 36415; 74176; 80053; 83605; 83735; 85025; 96361; 96374; 96375; 99284; A4216; A9270; J0696; J1885; J2405; J7030